=== PATIENT | male | born 1945 | race Caucasian/White ===

== ENCOUNTER 2017-03-19 12:10 | Observation (INO) | payer MEDICARE, OTHER ==
[~2017-03-19] VITALS: Ht 170.2 cm; Wt 58.6 kg
[2017-03-19 12:13] VITALS: BP 138/75; PULSE 67; RESP 14; O2SAT 100
--- NOTE | 2017-03-19 12:25 | ED.REPORT ---
HPI-Chest Pain 40 and Over Date of Service Mar 19, 2017 ED Provider: Dr. East Pt is a 71 y/o male presenting to the ED with his c/o CP onset yesterday morning. The patient woke up yesterday morning experiencing chest pain which seemed to decrease throughout the day. He was also experiencing some lightheadedness and vague generalized confusion which he describes as disorientation. He woke up today experiencing chest pain, nausea, and similar vague disorientation. He has also been experiencing a headache for the past 2 days which is described as similar to his usual headaches caused by sinus issues. His says he has been experiencing an unusual cough. He has a family hx of sudden and cardiac disease on his mother's side. He has no personal history of cardiac disease, HTN, DM. He reportedly had a negative stress test 8 years ago. Nursing Notes Stated Complaint: CHEST PAIN Chief Complaint: Chest Pain Nursing Notes Reviewed: Yes Allergies: Coded Allergies: amoxicillin (Verified Allergy, Severe, Anaphylaxis, 03/19/17) STATES HAD PENICILLIN IN PAST SEVERAL TIMES A CHILD DUE TO FREQUENT TONSILITIS. clavulanic acid (Verified Allergy, Severe, Anaphylaxis, 03/19/17) ether (Verified Adverse Reaction, Severe, HALLUCINATIONS 2 WEEKS POST ADMIN, 03/19/17) Sulfa (Sulfonamide Antibiotics) (Verified Adverse Reaction, Intermediate, Nausea, 03/19/17) Uncoded Allergies: PENICILLIN (Allergy, Severe, 03/19/17) Scheduled Hydroxyzine Pamoate (HydrOXYzine Pamoate) 25 Mg Capsule 25 MG PO QAM Loratadine (Loratadine) 10 Mg Capsule 10 MG PO QAM Tamsulosin ER (Tamsulosin ER) 0.4 Mg Cap.er.24h 0.4 MG PO HS Scheduled PRN Fluticasone Propionate (Flonase Allergy Relief) 50 Mcg/Actuation Trion.susp 1 SPRAYS NS BID PRN PRN For Congestion Hydrocodone-Acetaminophen 5-325 mg (Hydrocodone-Acetaminophen 5-325 mg) 1 Each Tablet 1 TABLET PO Q12H PRN PRN For Pain Ibuprofen (Ibuprofen) 200 Mg Capsule 200-400 MG PO BID PRN PRN ARTHRITIS PAIN Nystatin/Triamcin (Nystatin-Triamcinolone Cream) 15 Gm Cream..g. 15 GM TP BID PRN PRN RASH General Time Seen by MD: 12:24 Chief Complaint Chest pain Hx Obtained From: Patient Arrived By: Walk-in Sudden in Onset?: No Onset Occurred: Yesterday Symptom Duration: Intermittent Location: : Substernal Quality: Painful Severity: Current: Mild Severity: Maximum: Moderate Recent Healthcare: No recent doctor visit, No recent hospitalization Similar Sx Previous: No Risk Factors HEART Score HEART for MACE: Mod index of susp (1), Age 65 or over (2), 1-2 CAD risk factors (1) HEART for MACE Score: 4-7 (mod risk 12%-16.6%) Past Medical History Past Medical History IBS - Chronic diarrhea Depression PTSD Insomnia BPH Anxiety Osteoarthritis Chronic sinusitis Rectal fistula Past Surgical History Right knee arthroscopy Sinus Hernia repair Tonsillectomy Pill cam study Family History Cardiac disease in mother Sudden in mother Smoking History Never Smoker Social History Drug Use: Denies drug use Ambulatory Status Independent Review of Systems Respiratory: Reports: Non-productive cough Cardiovascular: Reports: Chest pain GI: Reports: Nausea Neurologic: Reports: Confusion Complete sys rev & neg: except as marked. Physical Exam Initial Vital Signs Vital Signs (First) Date Time Temp Pulse Resp B/P Pulse Ox O2 Delivery O2 Flow Rate FiO2 03/19/17 12:13 36.8 67 14 138/75 100 Room Air Initial VS: Reviewed, Vital signs normal Head / Eyes: Atraumatic, Normocephalic ENT: Mucous membranes moist, Conjunctiva normal Neck: Full range of motion Extremities: Vascular intact, Neuro intact, No swelling Skin: Warm, Dry, No cyanosis Neurologic: Alert, Oriented, Nonfocal Psychiatric: Mood/affect normal, Behavior normal, Normal thought content General/Constitutional: Awake, Alert, No acute distress, Cooperative, Not toxic appearing Respiratory / Chest: Breath sounds NL, Breath sounds = bilat, No respiratory distress, No rales, No rhonchi, No wheezing, No stridor Pectus excavatum present Cardiovascular: Heart rate NL, Regular rhythm, Heart sounds NL, No gallop, No murmurs, No rubs, Pulses = bilaterally Abdomen: Soft, Non-tender, No guarding, No rebound, No distention, No palpable mass Interpretation & Diagnostics Lab Results Interpretation Result Diagram: 03/19/17 1230 03/19/17 1230 Test 03/19/17 12:17 03/19/17 12:30 03/19/17 14:50 03/19/17 15:17 D-Dimer < 0.50mg/L FEU (<0.50) White Blood Count 6.7th/mm3 (3.8-10.1) Red Blood Count 4.55mil/mm3 (4.40-5.80) Hemoglobin 14.7g/dL (13.8-17.2) Hematocrit 43.6% (41.0-50.0) Mean Corpuscular Volume 95.8fL (81-100) Mean Corpuscular Hemoglobin 32.3pg (27.0-35.0) Mean Corpuscular Hemoglobin Concent 33.7% (32.0-37.0) Red Cell Distribution Width 12.9% (12.3-15.4) Platelet Count 225bil/L (150-400) Neutrophils (%) (Auto) 62.9% (40-74) Lymphocytes (%) (Auto) 19.1% (14-46) Monocytes (%) (Auto) 12.2% (4-12) Eosinophils (%) (Auto) 5.3% (0-5) Basophils (%) (Auto) 0.4% (0-3) Sodium Level 139mEq/L (134-144) Potassium Level 4.7mEq/L (3.5-5.2) Chloride Level 101mEq/L (97-108) Carbon Dioxide Level 24mmol/L (18-29) Blood Urea Nitrogen 9mg/dL (8-27) Creatinine 0.76mg/dL (0.76-1.27) Estimat Glomerular Filtration Rate 108mL/min (>59) Glucose Level 96mg/dL (60-99) Calcium Level 9.0mg/dL (8.5-10.1) Magnesium Level 2.3mg/dL (1.6-2.6) Total Bilirubin 0.3mg/dL (0.0-1.2) Aspartate Amino Transf (AST/SGOT) 22U/L (0-50) Alanine Aminotransferase (ALT/SGPT) 12U/L (0-44) Alkaline Phosphatase 57U/L (25-160) Total Protein 6.8g/dL (6.4-8.4) Albumin 3.9g/dL (3.4-5.0) Lipase 66U/L (13-60) Hold Whitt Top Tube Received (Received) Troponin T < 0.010ug/L (0.0-0.011) Hold Urine Received (Received) ECG Interpretation ECG Interpretation: Sinus rhythm rate 58 APC LAD Time: 12:30 Interpreted by: ED physician Normal ECG Interpretation: No acute ischemic changes X-Ray Chest Interpretation Chest Xray Interpretation: IMPRESSION: No acute pulmonary process. Dictated by: Leslye Tidwell M.D. on 03/19/2017 at 13:20 Approved by: Leslye Tidwell M.D. on 03/19/2017 at 13:21 View: Portable, 1 view Interpretation / Wet Read by: Interpret - Radiologist Re-Eval/Medical Decision Med Decision/Clinical Course Heart score of 4. Will admit. Serial troponins negative. Needs provocative cardiac testing. Source of Hx: Old records Time of Eval: 13:57 Re-Evaluation/Progress Note: Pt rechecked. Informed pt of need for admission for ACS ruleout. Pt understands and agrees with plan for admission. All questions addressed. Consultation : Referral / Consult Name: Mee Montez MD Consulted With: Hospitalist Call Returned at: 14:49 Core Cutter: Will see patient, Agrees with eval, Agrees with plan, Accepts admit Counseled Regarding: Diagnosis, Lab results, Need for admission Discharge & Departure Primary Impression: Chest pain with moderate risk of acute coronary syndrome Additional Impression: Pectus excavatum Disposition: ADMITTED TO HOSPITAL Discharge Condition All VS Reviewed: Yes Condition: Stable Scribe Attestation Portions of this note were transcribed by Garrett Guzmán. I, Dr. East personally performed the history, physical exam and medical decision-making; I reviewed and confirmed the accuracy of the information in the transcribed note. Pedrito East DO Mar 19, 2017 12:25 GARRETT GUZMÁN Mar 19, 2017 12:43
[2017-03-19 12:44] LABS: BASOPHILS % (AUTO) 0.4 % (0-3); EOSINOPHILS % (AUTO) 5.3 % (0-5); MONOCYTES % (AUTO) 12.2 % (4-12); Mean Corpuscular Hemoglobin 32.3 pg (27.0-35.0); Mean Corpuscular Volume 95.8 fL (81-100); NEUTROPHILS % (AUTO) 62.9 % (40-74); Platelet Count 225 bil/L (150-400)
[2017-03-19] MEDS ORDERED: Ondansetron 2 mg/mL 2 mL Inj IVPUSH PRN ×3 (12:55→15:25)
[2017-03-19 13:12] LABS: TROPONIN T < 0.010 ug/L (0.0-0.011)
[2017-03-19 13:22] LABS: Magnesium 2.3 mg/dL (1.6-2.6)
--- NOTE | 2017-03-19 13:22 | DRSVH ---
PROCEDURE: X-RAY CHEST ONE VIEW, PORTABLE ([id number]) INDICATIONS: chest pain TECHNIQUE: One view of the chest was acquired. COMPARISON: None. FINDINGS: Surgical changes and devices: None. Lungs and pleura: No pleural effusions or pneumothorax. Lungs are clear. Mediastinum: Mediastinal contours appear normal. Heart size is normal. Bones and chest wall: No suspicious bony lesions. Overlying soft tissues appear unremarkable. IMPRESSION: No acute pulmonary process. Dictated by: Leslye Tidwell M.D. on 03/19/2017 at 13:20 Approved by: Leslye Tidwell M.D. on 03/19/2017 at 13:21
[2017-03-19 14:21] VITALS: BP 157/72; PULSE 60; RESP 20; O2SAT 98
[2017-03-19] MEDS ORDERED: KEN25CR EXT (14:51)
[2017-03-19] MEDS ORDERED: IBUP200C PO (14:51)
[2017-03-19] MEDS ORDERED: HYDR-4003 PO (14:51)
[2017-03-19] MEDS ORDERED: HYDR-3797 PO (14:51)
[2017-03-19] MEDS ORDERED: TAMS0.4C29 PO (14:51)
[2017-03-19] MEDS ORDERED: FLUT9.9S NS (14:51)
[2017-03-19] MEDS ORDERED: LORA10CA9 PO (14:52)
[2017-03-19] MEDS ORDERED: NYST15CR TP (14:53)
[2017-03-19] MEDS ORDERED: Alum-Mag Hydrox-Simeth 30 mL Suspension PO PRN ×2 (15:20→15:25)
[2017-03-19] MEDS ORDERED: Senna-Docusate 8.6-50 mg Tablet PO PRN (15:25)
[2017-03-19] MEDS ORDERED: Polyethylene Glycol (PEG) 17 Gm Powder PO PRN (15:25)
[2017-03-19] MEDS ORDERED: Atropine 1 mg/10 mL (Code) Syringe IVPUSH PRN (15:25)
--- NOTE | 2017-03-19 15:39 | PCM.HPMED ---
Subjective Date of Service Mar 19, 2017 Primary Provider: Admitting Physician: Mee Montez MD Primary Care Physician: Other,Physician Attending Physician: Mee Montez MD Admit Status: From the Emergency Department, 23-Hour Observation, Admit to [facility], Remote Telemetry Chief Complaint: Left sided chest pain History of Present Illness: This 71-year-old male who presented to the emergency room with chest pain which started yesterday morning. He notes her is no particular activity that brought it on. He describes it as a dull ache. Much there constantly just a matter of degree. Denies any shortness of breath with it does admit to possibly some diaphoresis with it also feels lightheaded and foggy. Nitroglycerin did not seem to help nor did morphine in the emergency room help. He also notes increased fatigue over the past 2 days. He notes that his pain is not worse with movement or inspiration. He denies cough. Denies any fevers or chills. Denies any nausea or vomiting. He does admit to having had a similar episode approximately 10 years ago had a cardiac workup which was negative and was diagnosed with panic attack. At that time he was undergoing a lot of stress. Of note he does have a history of depression and anxiety all of his life. He tells me he had been on for psychotropic agents but stopped these about 6 months ago. He still does take hydroxyzine when necessary anxiety. His primary care provider is in [facility] in [place]. Review of Systems: He does have intermittent diarrhea which he has had all of his life. All other review of systems are reviewed and are negative except for as in history of present illness. Allergies Coded Allergies: amoxicillin (Verified Allergy, Severe, Anaphylaxis, 03/19/17) STATES HAD PENICILLIN IN PAST SEVERAL TIMES A CHILD DUE TO FREQUENT TONSILITIS. clavulanic acid (Verified Allergy, Severe, Anaphylaxis, 03/19/17) ether (Verified Adverse Reaction, Severe, HALLUCINATIONS 2 WEEKS POST ADMIN, 03/19/17) Sulfa (Sulfonamide Antibiotics) (Verified Adverse Reaction, Intermediate, Nausea, 03/19/17) Uncoded Allergies: PENICILLIN (Allergy, Severe, 03/19/17) Home Medications Flomax 0.4 mg by mouth at at bedtime daily Vqds-xce-hemhiar allergy medications Xrbi-oho-cidvbyt anti-diarrhea medications Hydroxyzine when necessary for anxiety PMH Past Medical History IBS - Chronic diarrhea Depression PTSD Insomnia BPH Anxiety Osteoarthritis Chronic sinusitis Rectal fistula Past Surgical History Right knee arthroscopy Sinus Hernia repair Tonsillectomy Pill cam study Family History Mother and father were both alcoholics. Mother side of the family had a history of diabetes and coronary artery disease. Social History Occupation: retired computer game designer Hx Alcohol Use: Yes (wine only) Hx Substance Use: No Smoking Status: Never Smoker Living Arrangement: with Family (lives with his ) Exam Vital Signs Vital Sign - Last Date Time Temp Pulse Resp B/P Pulse Ox O2 Delivery O2 Flow Rate FiO2 03/19/17 14:21 60 20 157/72 98 Room Air 03/19/17 12:13 36.8 Exam Constitutional: Elderly male in no acute distress Head: Normocephalic atraumatic Eyes: PERRLA DC EOMI Mouth: No lesions Neck: Carotids 2+ over 4 the bruits Chest: Clear to auscultation Cor: Regular rate and rhythm S1-S2 without murmur Abdomen: Soft nontender bowel sounds present Extremities: No pedal edema Skin: No rashes Psych: Mood and affect appear appropriate Neuro: Alert and oriented 3, motor strength is intact bilaterally Lab and Diagnostics Labs Laboratory Tests 72 Hours Test 03/19/17 12:17 03/19/17 12:30 03/19/17 14:50 03/19/17 15:17 D-Dimer < 0.50mg/L FEU (<0.50) Hold Whitt Top Tube Received (Received) Received (Received) White Blood Count 6.7th/mm3 (3.8-10.1) Red Blood Count 4.55mil/mm3 (4.40-5.80) Hemoglobin 14.7g/dL (13.8-17.2) Hematocrit 43.6% (41.0-50.0) Mean Corpuscular Volume 95.8fL (81-100) Mean Corpuscular Hemoglobin 32.3pg (27.0-35.0) Mean Corpuscular Hemoglobin Concent 33.7% (32.0-37.0) Red Cell Distribution Width 12.9% (12.3-15.4) Platelet Count 225bil/L (150-400) Neutrophils (%) (Auto) 62.9% (40-74) Lymphocytes (%) (Auto) 19.1% (14-46) Monocytes (%) (Auto) 12.2% (4-12) Eosinophils (%) (Auto) 5.3% (0-5) Basophils (%) (Auto) 0.4% (0-3) Sodium Level 139mEq/L (134-144) Potassium Level 4.7mEq/L (3.5-5.2) Chloride Level 101mEq/L (97-108) Carbon Dioxide Level 24mmol/L (18-29) Blood Urea Nitrogen 9mg/dL (8-27) Creatinine 0.76mg/dL (0.76-1.27) Estimat Glomerular Filtration Rate 108mL/min (>59) Glucose Level 96mg/dL (60-99) Calcium Level 9.0mg/dL (8.5-10.1) Magnesium Level 2.3mg/dL (1.6-2.6) Total Bilirubin 0.3mg/dL (0.0-1.2) Aspartate Amino Transf (AST/SGOT) 22U/L (0-50) Alanine Aminotransferase (ALT/SGPT) 12U/L (0-44) Alkaline Phosphatase 57U/L (25-160) Troponin T < 0.010ug/L (0.0-0.011) < 0.010ug/L (0.0-0.011) Total Protein 6.8g/dL (6.4-8.4) Albumin 3.9g/dL (3.4-5.0) Lipase 66U/L (13-60) Hold Urine Received (Received) Result Diagram: 03/19/17 1230 03/19/17 1230 X-Rays, CTs and MRIs PROCEDURE: X-RAY CHEST ONE VIEW, PORTABLE ([id number]) INDICATIONS: chest pain TECHNIQUE: One view of the chest was acquired. COMPARISON: None. FINDINGS: Surgical changes and devices: None. Lungs and pleura: No pleural effusions or pneumothorax. Lungs are clear. Mediastinum: Mediastinal contours appear normal. Heart size is normal. Bones and chest wall: No suspicious bony lesions. Overlying soft tissues appear unremarkable. IMPRESSION: No acute pulmonary process. Dictated by: Leslye Tidwell M.D. on 03/19/2017 at 13:20 Approved by: Leslye Tidwell M.D. on 03/19/2017 at 13:21 12-lead ECG Sinus at a rate of 58 QTC is 419 Assessment & Plan # Chest pain, acute, present on admission -Placed on telemetry -Check serial cardiac enzymes -Scheduled nuclear pharmacological stress test for tomorrow -Check fasting lipid panel # Depression/anxiety, chronic, present on admission -We will monitor and resume any current medications that he is on #DVT prophylaxis -Subcutaneous prophylactic Lovenox and SCDs # CODE STATUS -Patient is full code. Pain Evaluation: Adequate Pain Control VTE Prophylaxis: Sub-Q Enoxaparin, SCDs Resuscitation Status: CPR: Attempt Resuscitation Time spent 60 minutes Mee Montez MD Mar 19, 2017 15:39
[2017-03-19] MEDS ORDERED: hydrOXYzine Pamoate 25 mg Capsule PO PRN (15:45)
[2017-03-19] MEDS ORDERED: HYDROcodone-APAP 5-325 mg Tablet PO PRN (16:00)
[2017-03-19 16:01] VITALS: PULSE 50
[2017-03-19 16:07] VITALS: BP 108/61; PULSE 59; RESP 22; O2SAT 97
[2017-03-19] MEDS: 0.9% Sodium Chloride 1,000 ML IV SCH (16:31)
[2017-03-19] MEDS: Sodium Chloride LOK Flush 10 mL Syringe IVFLUSH SCH (16:32)
[2017-03-19 17:43] LABS: Creatine Kinase 103 U/L (21-232); Magnesium 2.3 mg/dL (1.6-2.6)
--- NOTE | 2017-03-19 17:49 | NUR ---
Admit Patient arrived to [facility] @ 1600. SL x 1. Vitals stable. C/o 2/10 chest pain, enzymes, EKG & chest xray WNL. Nitro x 2 & MS admin in ED w/ little effect, stated chest pain hasn't changed since arrival to ED. MIBI stress test scheduled for a.m., NPO after midnight. Patient admitted by admit RN in ED. Oriented to room, NS @ 80ml/hr ordered/implemented. at the bedside. Tele: SB/SR 44-43
[2017-03-19 17:53] LABS: TROPONIN T < 0.010 ug/L (0.0-0.011)
[2017-03-19 18:17] LABS: APPEARANCE,URINE CLEAR (CLEAR,HAZY); COLOR,URINE YELLOW (YELLOW); OCCULT BLOOD,URINE NEGATIVE (NEGATIVE); UROBILINOGEN,URINE NORMAL (NORMAL)
[2017-03-19 19:38] VITALS: BP 110/62; PULSE 60; RESP 20; O2SAT 98
--- NOTE | 2017-03-19 20:13 | NUR ---
JAGDISH explained and signed. Copy of JAGDISH and Medicare self administered medication information given to pt.
[2017-03-19 22:33] LABS: Creatine Kinase 107 U/L (21-232)
[2017-03-19 23:55] VITALS: BP 126/65; PULSE 66; RESP 20; O2SAT 96
[2017-03-20] MEDS: Sodium Chloride LOK Flush 10 mL Syringe IVFLUSH SCH ×2 (00:04→08:30)
[2017-03-20] MEDS: 0.9% Sodium Chloride 1,000 ML IV SCH (03:55)
[2017-03-20 04:31] VITALS: BP 118/76; PULSE 67; RESP 20; O2SAT 97
--- NOTE | 2017-03-20 04:41 | NUR ---
NPO/Tele/pain Pt NPO after midnight for Nuclear Stress Test in the AM. Tele SR hr 71 with PVCs per bus driver/monitor. Pt states paul pain now reduced from arrival 07/27-tolerable. No s/sx of distress. VSS. Care continues.
[2017-03-20 06:25] LABS: BASOPHILS % (AUTO) 0.6 % (0-3); EOSINOPHILS % (AUTO) 6.9 % (0-5); MONOCYTES % (AUTO) 12.8 % (4-12); Mean Corpuscular Hemoglobin 32.4 pg (27.0-35.0); Mean Corpuscular Volume 96.9 fL (81-100); NEUTROPHILS % (AUTO) 56.8 % (40-74); Platelet Count 202 bil/L (150-400)
[2017-03-20 06:34] VITALS: PULSE 66
--- NOTE | 2017-03-20 06:40 | NUR ---
Home meds sent to pharmacy
[2017-03-20] MEDS ORDERED: Fluticasone 0.05% 15 Spray/2 Gm 16 Gm Nasal Spray NASAL PRN (08:30)
[2017-03-20 08:53] VITALS: PULSE 58
[2017-03-20 10:22] VITALS: BP 127/70; PULSE 64; RESP 19; O2SAT 99
--- NOTE | 2017-03-20 11:45 | PCM.DIMED ---
Discharge Instructions Date of Service Mar 20, 2017 Dates of Hospitalization Mar 19, 2017 at 15:21 Discharge Diagnosis Discharge Diagnosis Chest pain with low risk nuclear medicine pharmacological stress test Diet Discharge Diet: Heart Healthy Activity Discharge Activity: No restrictions Call your provider Call your provider for: Fever or Chills, Shortness of breath, Bleeding, Chest pain, Vomitting, Excessive diarrhea, Weakness (unilateral) Patient Instructions [facility] Follow-up with PCP in: 1 week (, sooner if problems.) Mee Montez MD Mar 20, 2017 11:45
--- NOTE | 2017-03-20 11:50 | PCM.DC.MED ---
Discharge Summary Date of Service Mar 20, 2017 Dates of Hospitalization Date of Hospital Admission Mar 19, 2017 at 15:21 Date of Discharge: Mar 20, 2017 Providers: Admitting Physician: Mee Montez MD Primary Care Physician: Other,Physician Attending Physician: Mee Montez MD Diagnosis at Time of Discharge Diagnosis at Time of Discharge Chest pain with low risk nuclear medicine pharmacological stress test Procedures XRay, CTs & MRIs PROCEDURE: X-RAY CHEST ONE VIEW, PORTABLE ([id number]) INDICATIONS: chest pain TECHNIQUE: One view of the chest was acquired. COMPARISON: None. FINDINGS: Surgical changes and devices: None. Lungs and pleura: No pleural effusions or pneumothorax. Lungs are clear. Mediastinum: Mediastinal contours appear normal. Heart size is normal. Bones and chest wall: No suspicious bony lesions. Overlying soft tissues appear unremarkable. IMPRESSION: No acute pulmonary process. Dictated by: Leslye Tidwell M.D. on 03/19/2017 at 13:20 Approved by: Leslye Tidwell M.D. on 03/19/2017 at 13:21 ECG 12 Lead Sinus at a rate of 58 QTC is 419 Brief History This 71-year-old male who presented to the emergency room with chest pain which started yesterday morning. He notes her is no particular activity that brought it on. He describes it as a dull ache. Much there constantly just a matter of degree. Denies any shortness of breath with it does admit to possibly some diaphoresis with it also feels lightheaded and foggy. Nitroglycerin did not seem to help nor did morphine in the emergency room help. He also notes increased fatigue over the past 2 days. He notes that his pain is not worse with movement or inspiration. He denies cough. Denies any fevers or chills. Denies any nausea or vomiting. He does admit to having had a similar episode approximately 10 years ago had a cardiac workup which was negative and was diagnosed with panic attack. At that time he was undergoing a lot of stress. Of note he does have a history of depression and anxiety all of his life. He tells me he had been on for psychotropic agents but stopped these about 6 months ago. He still does take hydroxyzine when necessary anxiety. His primary care provider is in [facility] in [place]. Hospital Course # Chest pain, acute, present on admission -Placed on telemetry -Check serial cardiac enzymes which were negative -Scheduled nuclear pharmacological stress test was done day of discharge and per her cellar pumper Dr. Ceja was low risk findings and hence discharged to home -Check fasting lipid panel(see labs above) # Depression/anxiety, chronic, present on admission -We will monitor and resume any current medications that he is on #DVT prophylaxis -Subcutaneous prophylactic Lovenox and SCDs # CODE STATUS -Patient is full code. Exam Vital Signs (Last) Date Time Temp Pulse Resp B/P Pulse Ox O2 Delivery O2 Flow Rate FiO2 03/20/17 10:22 36.9 64 19 127/70 99 Room Air Laboratory Tests 72 Hours Test 03/19/17 12:17 03/19/17 12:30 03/19/17 14:50 03/19/17 15:17 D-Dimer < 0.50mg/L FEU (<0.50) Hold Whitt Top Tube Received (Received) Received (Received) White Blood Count 6.7th/mm3 (3.8-10.1) Red Blood Count 4.55mil/mm3 (4.40-5.80) Hemoglobin 14.7g/dL (13.8-17.2) Hematocrit 43.6% (41.0-50.0) Mean Corpuscular Volume 95.8fL (81-100) Mean Corpuscular Hemoglobin 32.3pg (27.0-35.0) Mean Corpuscular Hemoglobin Concent 33.7% (32.0-37.0) Red Cell Distribution Width 12.9% (12.3-15.4) Platelet Count 225bil/L (150-400) Neutrophils (%) (Auto) 62.9% (40-74) Lymphocytes (%) (Auto) 19.1% (14-46) Monocytes (%) (Auto) 12.2% (4-12) Eosinophils (%) (Auto) 5.3% (0-5) Basophils (%) (Auto) 0.4% (0-3) Sodium Level 139mEq/L (134-144) Potassium Level 4.7mEq/L (3.5-5.2) Chloride Level 101mEq/L (97-108) Carbon Dioxide Level 24mmol/L (18-29) Blood Urea Nitrogen 9mg/dL (8-27) Creatinine 0.76mg/dL (0.76-1.27) Estimat Glomerular Filtration Rate 108mL/min (>59) Glucose Level 96mg/dL (60-99) Calcium Level 9.0mg/dL (8.5-10.1) Magnesium Level 2.3mg/dL (1.6-2.6) Total Bilirubin 0.3mg/dL (0.0-1.2) Aspartate Amino Transf (AST/SGOT) 22U/L (0-50) Alanine Aminotransferase (ALT/SGPT) 12U/L (0-44) Alkaline Phosphatase 57U/L (25-160) Troponin T < 0.010ug/L (0.0-0.011) < 0.010ug/L (0.0-0.011) Total Protein 6.8g/dL (6.4-8.4) Albumin 3.9g/dL (3.4-5.0) Lipase 66U/L (13-60) Hold Urine Received (Received) Test 03/19/17 16:58 03/19/17 18:00 03/19/17 21:51 03/20/17 06:05 Magnesium Level 2.3mg/dL (1.6-2.6) Total Creatine Kinase 103U/L (21-232) 107U/L (21-232) Creatine Kinase MB 2.0ng/mL (0.0-10.4) 2.2ng/mL (0.0-10.4) Creatine Kinase MB % % (0.0-5.0) % (0.0-5.0) Troponin T < 0.010ug/L (0.0-0.011) 0.010ug/L (0.0-0.011) Thyroid Stimulating Hormone (TSH) 2.380uIU/mL (0.450-4.500) Urine Color Yellow (YELLOW) Urine Appearance Clear (CLEAR,HAZY) Urine pH 7.0 (5.0-8.0) Urine Specific [place] 1.010 (1.003-1.035) Urine Protein Negativemg/dL (NEG,TRACE) Urine Glucose (UA) Negativemg/dL (NEGATIVE) Urine Ketones Negativemg/dL (NEGATIVE) Urine Occult Blood Negative (NEGATIVE) Urine Nitrite Negative (NEGATIVE) Urine Bilirubin Negative (NEGATIVE) Urine Urobilinogen Normalmg/dL (NORMAL) Urine Leukocyte Esterase Negative (NEGATIVE) Urine RBC 0-2/hpf (0-2) Urine WBC 0-5/hpf (0-5) Urine Epithelial Cells Occasional/hpf (NONE-MOD) Urine Crystals Amorphous phosphates Urine Bacteria Few/hpf (NONE-FEW) Urine Hyaline Casts None/lpf (NONE) Urine Granular Casts None seen (NONE SEEN) Urine Waxy Casts None seen (NONE SEEN) Urine Red Blood Cell Casts None seen (NONE SEEN) Urine White Blood Cell Casts None seen (NONE SEEN) Urine Mucus None seen (None Seen) Urine Trichomonas None seen (NONE SEEN) Urine Yeast None (NONE SEEN) Urinalysis Comment None Urine Culture Reflexed Not indicated White Blood Count 6.4th/mm3 (3.8-10.1) Red Blood Count 4.14mil/mm3 (4.40-5.80) Hemoglobin 13.4g/dL (13.8-17.2) Hematocrit 40.1% (41.0-50.0) Mean Corpuscular Volume 96.9fL (81-100) Mean Corpuscular Hemoglobin 32.4pg (27.0-35.0) Mean Corpuscular Hemoglobin Concent 33.4% (32.0-37.0) Red Cell Distribution Width 12.9% (12.3-15.4) Platelet Count 202bil/L (150-400) Neutrophils (%) (Auto) 56.8% (40-74) Lymphocytes (%) (Auto) 22.9% (14-46) Monocytes (%) (Auto) 12.8% (4-12) Eosinophils (%) (Auto) 6.9% (0-5) Basophils (%) (Auto) 0.6% (0-3) Sodium Level 142mEq/L (134-144) Potassium Level 4.9mEq/L (3.5-5.2) Chloride Level 106mEq/L (97-108) Carbon Dioxide Level 26mmol/L (18-29) Blood Urea Nitrogen 12mg/dL (8-27) Creatinine 0.86mg/dL (0.76-1.27) Estimat Glomerular Filtration Rate 93mL/min (>59) Glucose Level 100mg/dL (60-99) Calcium Level 8.3mg/dL (8.5-10.1) Triglycerides Level 73mg/dL (0-149) Cholesterol Level 160mg/dL (100-199) LDL Cholesterol, Calculated 87.400mg/dL (0-99) VLDL Cholesterol 14.600mg/dL HDL Cholesterol 58mg/dL (>39) Cholesterol/HDL Ratio 2.76 (0.0-4.4) Test 03/19/17 12:17 03/19/17 12:30 03/19/17 15:17 03/19/17 16:58 D-Dimer < 0.50mg/L FEU (<0.50) Total Bilirubin 0.3mg/dL (0.0-1.2) Aspartate Amino Transf (AST/SGOT) 22U/L (0-50) Alanine Aminotransferase (ALT/SGPT) 12U/L (0-44) Alkaline Phosphatase 57U/L (25-160) Total Protein 6.8g/dL (6.4-8.4) Albumin 3.9g/dL (3.4-5.0) Lipase 66U/L (13-60) Hold Whitt Top Tube Received (Received) Hold Urine Received (Received) Magnesium Level 2.3mg/dL (1.6-2.6) Thyroid Stimulating Hormone (TSH) 2.380uIU/mL (0.450-4.500) Test 03/19/17 18:00 03/19/17 21:51 03/20/17 06:05 Urine Color Yellow (YELLOW) Urine Appearance Clear (CLEAR,HAZY) Urine pH 7.0 (5.0-8.0) Urine Specific [place] 1.010 (1.003-1.035) Urine Protein Negativemg/dL (NEG,TRACE) Urine Glucose (UA) Negativemg/dL (NEGATIVE) Urine Ketones Negativemg/dL (NEGATIVE) Urine Occult Blood Negative (NEGATIVE) Urine Nitrite Negative (NEGATIVE) Urine Bilirubin Negative (NEGATIVE) Urine Urobilinogen Normalmg/dL (NORMAL) Urine Leukocyte Esterase Negative (NEGATIVE) Urine RBC 0-2/hpf (0-2) Urine WBC 0-5/hpf (0-5) Urine Epithelial Cells Occasional/hpf (NONE-MOD) Urine Crystals Amorphous phosphates Urine Bacteria Few/hpf (NONE-FEW) Urine Hyaline Casts None/lpf (NONE) Urine Granular Casts None seen (NONE SEEN) Urine Waxy Casts None seen (NONE SEEN) Urine Red Blood Cell Casts None seen (NONE SEEN) Urine White Blood Cell Casts None seen (NONE SEEN) Urine Mucus None seen (None Seen) Urine Trichomonas None seen (NONE SEEN) Urine Yeast None (NONE SEEN) Urinalysis Comment None Urine Culture Reflexed Not indicated Total Creatine Kinase 107U/L (21-232) Creatine Kinase MB 2.2ng/mL (0.0-10.4) Creatine Kinase MB % % (0.0-5.0) Troponin T 0.010ug/L (0.0-0.011) White Blood Count 6.4th/mm3 (3.8-10.1) Red Blood Count 4.14mil/mm3 (4.40-5.80) Hemoglobin 13.4g/dL (13.8-17.2) Hematocrit 40.1% (41.0-50.0) Mean Corpuscular Volume 96.9fL (81-100) Mean Corpuscular Hemoglobin 32.4pg (27.0-35.0) Mean Corpuscular Hemoglobin Concent 33.4% (32.0-37.0) Red Cell Distribution Width 12.9% (12.3-15.4) Platelet Count 202bil/L (150-400) Neutrophils (%) (Auto) 56.8% (40-74) Lymphocytes (%) (Auto) 22.9% (14-46) Monocytes (%) (Auto) 12.8% (4-12) Eosinophils (%) (Auto) 6.9% (0-5) Basophils (%) (Auto) 0.6% (0-3) Sodium Level 142mEq/L (134-144) Potassium Level 4.9mEq/L (3.5-5.2) Chloride Level 106mEq/L (97-108) Carbon Dioxide Level 26mmol/L (18-29) Blood Urea Nitrogen 12mg/dL (8-27) Creatinine 0.86mg/dL (0.76-1.27) Estimat Glomerular Filtration Rate 93mL/min (>59) Glucose Level 100mg/dL (60-99) Calcium Level 8.3mg/dL (8.5-10.1) Triglycerides Level 73mg/dL (0-149) Cholesterol Level 160mg/dL (100-199) LDL Cholesterol, Calculated 87.400mg/dL (0-99) VLDL Cholesterol 14.600mg/dL HDL Cholesterol 58mg/dL (>39) Cholesterol/HDL Ratio 2.76 (0.0-4.4) Discharge Medications Discharge Medications Hydroxyzine Pamoate (HydrOXYzine Pamoate) 25 Mg Capsule 25 MG PO QAM (Reported) Loratadine (Loratadine) 10 Mg Capsule 10 MG PO QAM (Reported) Tamsulosin ER (Tamsulosin ER) 0.4 Mg Cap.er.24h 0.4 MG PO HS (Reported) As needed Fluticasone Propionate (Flonase Allergy Relief) 50 Mcg/Actuation [place].susp 1 SPRAYS NS BID PRN PRN For Congestion (Reported) Hydrocodone-Acetaminophen 5-325 mg (Hydrocodone-Acetaminophen 5-325 mg) 1 Each Tablet 1 TABLET PO Q12H PRN PRN For Pain (Reported) Ibuprofen (Ibuprofen) 200 Mg Capsule 200-400 MG PO BID PRN PRN ARTHRITIS PAIN ( Reported) Nystatin/Triamcin (Nystatin-Triamcinolone Cream) 15 Gm Cream..g. 15 GM TP BID PRN PRN RASH (Reported) Followup Plan Disposition: Home Discharge Diet: Heart Healthy Discharge Activity: No restrictions [facility]: [facility] Follow-up with PCP in: 1 week (, sooner if problems.) Time spent 30 minutes copies to: [facility] Mee Montez MD Mar 20, 2017 11:50
--- NOTE | 2017-03-20 12:20 | NUR ---
Discharge Patient given discharge orders. Patient given home medications from pharmacy. Patient given medication list with written times of when next dose is due. Patient given follow up information. No new prescriptions were ordered or given. Patient in room at time of discharge. Patient offered wheelchair to main entrance and preferred to walk. Assisted to main entrance by staff and .
--- NOTE | 2017-03-20 13:01 | NUR ---
Social Work: Initial Assessment / Discharge Data: See initial assessment. Patient is a 71 year old male who was admitted on 03/19/17 for chest pain per H&P. Patient's insurance is Medicare and [employer]. EMR reviewed. SW met with patient to discuss discharge planning. SW role explained. Patient states that he lives in a home with his in [facility]. Patient states that he has a DPOA however, no AD have been completed. Patient has declined AD resources at this time. Patient states that he is I at baseline for ADLs and care needs. Patient confirms that he drives via P[place]. Patient denies any hx of home health services or SNF. Patient denies having technician terminal and repeater care insurance or VA benefits. Patient denies being a caregiver for anyone. Upon discharge, patient states that transportation will be provided by his . SW provided patient with a discharge planning checklist booklet and encouraged to call with any questions/concerns. Phone number provided. Patient was discussed in morning rounds. Patient has been deemed medically stable for discharge today. Patient has no additional needs at this time. Assessment: Patient will discharge home with . Plan: Patient will discharge home today. Transportation will be provided by spouse. Patient has no additional needs at this time. FREEDOM Menon Addendum: 03/20/17 at 1312 by ROSINA CERVANTES Amended: Links added.
--- NOTE | 2017-03-20 15:46 | DRSVH ---
PROCEDURE: EITHER REST OR STRESS ONLY. Exercise myocardial perfusion SPECT with gated imaging and e jection fraction RADIOPHARMACEUTICAL: 22.1 mCi Tc-99m tetrofosmin IV at peak exercise. INDICATIONS: CHEST PAIN. TECHNIQUE: Radiopharmaceutical was injected at peak stress test. SPECT images were obtained, with p erfusion images in short axis, horizontal long axis, and vertical long axis views. Gated images were reviewed using [employer] software. COMPARISON: None. CARDIAC STRESS: A standard [place] treadmill exercise tolerance test was performed by the patient unde r the supervision of attending staff. The patient exercised for 6 minutes and 51 seconds; functional aerobic impairment (JEANNIE) was 92%. Hemodynamic Data: There is normal blood pressure and heart response to exercise. The patient achiev ed 92% of maximum predicted heart rate. Symptoms: The patient has baseline chest discomfort. On a scale of 1 to 10 it was about a 1 in inte nsity. During exercise, it went up to 5 in intensity. EKG: Baseline rhythm was sinus. Stress EKG did not reveal any obvious ischemic changes. There were occasional PVCs and PACs. FINDINGS: Raw Data: There appears to be adequate myocardial uptake. Left Ventricular Function: Stress LV ejection fraction is 89% without any obvious wall motion abnorm alities. Stress LV end diastolic volume was 52 mL. Myocardial Perfusion: Stress supine images reveal moderate-size, moderately decreased perfusion of t he base to mid inferior wall as well as basal lateral wall, which got completely resolved during pro ne images suggestive of tissue attenuation artifact like diaphragmatic tissue attenuation artifact. The prone images revealed normal myocardial perfusion. IMPRESSION: This is a normal myocardial perfusion study with evidence of diaphragmatic tissue attenu ation artifact, which completely resolved during prone images. The patient walked on the [place] sivan col for 6 minutes and 51 seconds. Functional aerobic impairment was -5%. Normal blood pressure and heart rate response. No obvious convincing ischemic electrocardiogram changes. No significant susta ined arrhythmias. The patient had chest pain at baseline, which got worse during exercise, however, on perfusion study, there was no evidence of ischemia. Consider alternate etiology of chest pain. C linical correlation is recommended. As far as the perfusion scan is concerned, this is a low-risk m yocardial perfusion scan. Dictated by: Chaz Ceja M.D. on 03/20/2017 at 11:36 Transcribed by: ANITA on 03/20/2017 at 18:45 Approved by: Chaz Ceja M.D. on 03/21/2017 at 14:35
== END 2017-03-20 12:25 | disposition home or self-care (01) ==
LOC: SED 12:10 → MPC 15:21
PROVIDERS: ADMIT Specialist; ATTEND Specialist
DX: R07.89 Other chest pain (principal); K58.9 Irritable bowel syndrome, unspecified; F43.10 Post-traumatic stress disorder, unspecified; G47.00 Insomnia, unspecified; N40.0 Benign prostatic hyperplasia without lower urinary tract symptoms; M19.90 Unspecified osteoarthritis, unspecified site; F41.9 Anxiety disorder, unspecified; Z79.899 Other long term (current) drug therapy